=== PATIENT | female | born 1995 | race Two or more races ===

== ENCOUNTER → 2019-09-04 | Outpatient (CLI) | payer OTHER ==
[~2019-09-04] MED LIST: Procardia Xl 30MG TAB PO
== END | disposition home or self-care (01) ==
LOC: PRENATAL 14:46
PROVIDERS: ATTEND Obstetrics & Gynecology Maternal & Fetal Medicine
DX: O35.0XX1 Maternal care for (suspected) central nervous system malformation in fetus, fetus 1 (principal); O98.512 Other viral diseases complicating pregnancy, second trimester; O35.3XX1 Maternal care for (suspected) damage to fetus from viral disease in mother, fetus 1; Z36.89 Encounter for other specified antenatal screening; Z3A.26 26 weeks gestation of pregnancy

== ENCOUNTER 2019-11-04 18:41 | Inpatient (IN) | payer OTHER ==
[~2019-11-04] VITALS: Ht 154.9 cm; Wt 86.2 kg
[2019-11-04] MEDS ORDERED: PRENATAL TABLE1 EAC1 PO (19:31)
== END 2019-11-05 08:04 | disposition home or self-care (01) | DRG 833 ==
LOC: LDR 18:41
PROVIDERS: ADMIT Specialist; ATTEND Specialist
PROC: 4A1HXCZ Monitoring of Products of Conception, Cardiac Rate, External Approach (ICD-10-PCS; principal; 2019-11-04)
PROC: BY4FZZZ Ultrasonography of Third Trimester, Single Fetus (ICD-10-PCS; 2019-11-04)
DX: O23.43 Unspecified infection of urinary tract in pregnancy, third trimester (principal)

== ENCOUNTER 2019-11-24 00:37 | Outpatient (CLI) | payer OTHER ==
[~2019-11-24 00:37] MED LIST changes: +PRENATAL TABLE1 EAC1 PO
== END 2019-11-24 09:17 | disposition home or self-care (01) ==
LOC: OBS/DEL 00:37
PROVIDERS: ATTEND Specialist
DX: O26.893 Other specified pregnancy related conditions, third trimester (principal); N98.8 Other complications associated with artificial fertilization

== ENCOUNTER 2019-11-29 06:20 | Inpatient (IN) | payer OTHER ==
[~2019-11-29] VITALS: Ht 154.9 cm; Wt 68.0 kg
== END 2019-12-01 15:06 | disposition home or self-care (01) | DRG 807 ==
LOC: LDR 06:20 → OB/GYN 11-30 12:41
PROVIDERS: ADMIT Specialist; ATTEND Specialist
PROC: 10E0XZZ Delivery of Products of Conception, External Approach (ICD-10-PCS; principal; 2019-11-29)
PROC: 0HQ9XZZ Repair Perineum Skin, External Approach (ICD-10-PCS; 2019-11-29)
PROC: 4A0HXFZ Measurement of Products of Conception, Cardiac Rhythm, External Approach (ICD-10-PCS; 2019-11-29)
PROC: 3E033VJ Introduction of Other Hormone into Peripheral Vein, Percutaneous Approach (ICD-10-PCS; 2019-11-29)
DX: O70.0 First degree perineal laceration during delivery (principal); Z37.0 Single live birth; Z3A.39 39 weeks gestation of pregnancy